=== PATIENT | male | born 1945 | race Caucasian/White ===

== ENCOUNTER 2017-10-21 19:51 | Emergency (ER) | payer MEDICAID, MEDICARE ==
[~2017-10-21] VITALS: Ht 172.7 cm; Wt 72.6 kg
[~2017-10-21 19:51] MED LIST: ALBU18HF2 IH; BUSP30TA2 PO; DOCU100C36 PO; FOLI1TAB16 PO; GABA-534 PO; HYDR-552 PO; SERT100T PO; TRAZ-147 PO
--- NOTE | 2017-10-21 20:00 | NUR ---
BBRA 102; MECHANICAL GLF, HIT THE BACK PF HIS HEAD, ADMITS TO DRINKING ALCOHOL. NAD NOTED, VSS, RESP EVEN AND UNLABORED. PT PUT ON HOSPITAL GOWN AND MONITOR. WAITING FOR MD AT BS.
[2017-10-21] MEDS ORDERED: TDAP [DIPH/PERTUSSIS/TET] 0.5 ML VIAL IM ONE ×2 (20:30→21:44)
--- NOTE | 2017-10-21 21:42 | NUR ---
CALLED [facility] FOR HIGHER LEVEL OF CARE TRANSFER SPOKE WITH RANDY. THEY HAVE NO AVAILABLE BEDS.
--- NOTE | 2017-10-21 21:50 | NUR ---
CALLED [facility] TRANSFER LINE AND SPOKE WITH
[2017-10-21] MEDS ORDERED: LEVETIRACETAM (500MG) 1,000 MG in IV NS 0.9% 100 ML IV SCH (22:00)
[2017-10-21] MEDS ORDERED: LEVETIRACETAM (500MG) 500 MG/5 ML VIAL IV ONE (22:24)
--- NOTE | 2017-10-21 22:41 | NUR ---
PT ACCEPTED AT [facility]. ACCEPTING DR EVIN ANDERSEN. NUMBER FOR REPORT [id number].
[2017-10-21 22:56] LABS: BASOPHILS # (AUTO) 0.1 /CMM (0.0-0.2); BASOPHILS % (AUTO) 1.1 % (0.0-2.0); EOSINOPHILS # (AUTO) 0.4 /CMM (0.0-0.7); EOSINOPHILS % (AUTO) 6.4 % (0.0-6.0); HEMATOCRIT 25 % (39-51); HEMOGLOBIN 7.7 g/dL (13.5-17.5); LYMPHOCYTES # (AUTO) 0.9 /CMM (0.8-4.8); MEAN CORPUSCULAR HEMOGLOBIN 24 PG (26.0-33.0); MEAN CORPUSCULAR HGB CONC 31 g/dl (31.0-36.0); MEAN CORPUSCULAR VOLUME 76 fL (80-96); MONOCYTES # (AUTO) 0.5 /CMM (0.1-1.30); MONOCYTES % (AUTO) 9.4 % (2.0-12.0); NEUTROPHILS # (AUTO) 3.8 /CMM (1.8-8.9); NEUTROPHILS % (AUTO) 67.1 % (43.0-81.0); PLATELET COUNT (AUTO) 122 /CMM (150-450); RDW COEFFICIENT OF VARIATION 18.5 (11.5-15.0); RED BLOOD CELL COUNT(AUTO) 3.24 MIL/uL (4.5-6.0); WHITE BLOOD COUNT (AUTO) 5.7 K/uL (4.3-11.0)
[2017-10-21 23:11] LABS: CALCIUM, SERUM 8.1 mg/dL (8.5-10.1); CARBON DIOXIDE 22 mmol/L (21-32); CHLORIDE 106 mmol/L (98-107); GLUCOSE 88 mg/dL (74-106); SODIUM SERUM 141 mmol/L (136-145); UREA NITROGEN, BLOOD 8 mg/dL (7-18)
[2017-10-21 23:17] LABS: INR 1.1 (0.87-1.13); PROTHROMBIN TIME 11.4 SECS (9.5-12.7)
--- NOTE | 2017-10-21 23:30 | NUR ---
[facility] TRIP#[id number]
--- NOTE | 2017-10-22 00:48 | NUR ---
Patient is resting comfortably in bed with eyes closed. Easily aroused. VSS
[2017-10-22 01:07] VITALS: BP 128/78
--- NOTE | 2017-10-22 01:10 | NUR ---
REPORT GIVEN TO AMIRAH RN
== END 2017-10-22 01:12 | disposition short-term general hospital (02) ==
LOC: ER 19:53
DX: S06.6X9A Traumatic subarachnoid hemorrhage with loss of consciousness of unspecified duration, initial encounter (principal); S50.01XA Contusion of right elbow, initial encounter; F10.129 Alcohol abuse with intoxication, unspecified; J45.909 Unspecified asthma, uncomplicated; W18.30XA Fall on same level, unspecified, initial encounter; Y93.89 Activity, other specified; Y92.89 Other specified places as the place of occurrence of the external cause; Y99.8 Other external cause status
CPT/HCPCS: 36415; 70450; 72125; 80048; 85025; 85730; 90471; 90715; 96365; 99285; A4606; J1953 ×2; J7030 ×2; J7040; Z7610

== ENCOUNTER 2019-07-20 22:16 | Inpatient (IN) | payer MEDICARE, BC ==
[~2019-07-20] VITALS: Ht 177.8 cm; Wt 63.5 kg
[~2019-07-20 22:16] MED LIST changes: +HYDR-4384 PO; -HYDR-552 PO; -TRAZ-147 PO; +TRAZ-214 PO
--- NOTE | 2019-07-20 22:25 | NUR ---
PT BIB EMS C/O R HIP, R THIGH PAIN S/P TRIP AND FALL. PT DENIES KO. PT AOX4. RESP EVEN AND UNLABORED. PT ON MONITOR IN BED 9. WILL CONTINUE TO MONITOR.
[2019-07-20] MEDS ORDERED: HYDROCODONE/APAP 10/325MG 1 EA TABLET PO ONE (23:00)
[2019-07-20] MEDS ORDERED: MORPHINE SULFATE INJ 2 MG/ML DISP.SYRIN IV ONE (23:30)
[2019-07-20] MEDS ORDERED: IV NS 0.9% 500 ML BAG IV ONE (23:30)
[2019-07-20] MEDS ORDERED: ONDANSETRON HCL/PF 4 MG/2 ML VIAL IVP ONE (23:30)
[2019-07-21 00:05] LABS: LYMPHOCYTES # (AUTO) 0.4 /CMM (0.8-4.8); MEAN CORPUSCULAR VOLUME 94 fL (80-96); MONOCYTES # (AUTO) 0.2 /CMM (0.1-1.30); NEUTROPHILS # (AUTO) 1.7 /CMM (1.8-8.9); WHITE BLOOD COUNT (AUTO) 2.4 K/uL (4.3-11.0)
[2019-07-21 00:09] LABS: BASOPHILS % (AUTO) 0.7 % (0.0-2.0); HEMATOCRIT 37 % (39-51); HEMOGLOBIN 12.4 g/dL (13.5-17.5); MEAN CORPUSCULAR HGB CONC 34 g/dl (31.0-36.0); NEUTROPHILS % (AUTO) 71.3 % (43.0-81.0); RED BLOOD CELL COUNT(AUTO) 3.93 MIL/uL (4.5-6.0)
[2019-07-21 00:12] LABS: CALCIUM, SERUM 8.6 mg/dL (8.5-10.1); CREATININE 0.9 mg/dL (0.6-1.3); PLATELET COUNT (AUTO) 44 /CMM (150-450); POTASSIUM 3.8 mmol/L (3.5-5.1)
[2019-07-21] MEDS ORDERED: IV 1/2NS 1000 ML 1,000 ML IV PRN (00:25)
[2019-07-21] MEDS ORDERED: HYDROCODONE/APAP 10/325MG 1 EA TABLET ONE (00:30)
[2019-07-21] MEDS ORDERED: ACETAMINOPHEN 325 MG TABLET PO PRN (00:30)
[2019-07-21] MEDS ORDERED: MAG HYDROX/AL HYDROX/SIMETH 30 ML UDC PO PRN (00:30)
[2019-07-21] MEDS ORDERED: Z GUARD REMEDY 2 OZ OINT TP PRN (00:30)
[2019-07-21] MEDS ORDERED: ONDANSETRON HCL/PF 4 MG/2 ML VIAL IVP PRN (00:30)
[2019-07-21] MEDS ORDERED: MAGNESIUM HYDROXIDE 30 ML UDC PO PRN (00:30)
[2019-07-21] MEDS ORDERED: MORPHINE SULFATE INJ 4 MG/ML DISP.SYRIN ONE (00:31)
[2019-07-21 00:48] LABS: LYMPHOCYTES % (MANUAL) 13 % (16-48); NEUTROPHILS % (MANUAL) 75 (42-76)
[2019-07-21 00:49] LABS: EOSINOPHILS % (MANUAL) 6 % (0-4); MONOCYTES % (MANUAL) 6 % (0-11.0)
--- NOTE | 2019-07-21 01:22 | NUR ---
REPORT GIVEN TO PREM LEYVA FOR JONY
--- NOTE | 2019-07-21 01:40 | NUR ---
RECEIVED PATIENT FROM ER FOR DX RIGHT HIP FRACTURE. AO X 3, ABLE TO MAKE NEEDS KNOWN. NO ACUTE DISTRESS NOTED. MONITORED FOR PAIN. IV SITE PATENT, INTACT; FLUSHED. SKIN ASSESSMENT DONE. BELONGINGS RECORDED. ON LOW BED WITH BILATERAL UPPER SIDE RAILS UP. CALL SHEEHAN WITHIN EASY REACH. WILL CONTINUE TO MONITOR.
[2019-07-21 01:45] VITALS: BP 129/37
[2019-07-21] MEDS: MORPHINE SULFATE INJ 2 MG/ML DISP.SYRIN IV PRN ×2 (02:31→07:39)
[2019-07-21 05:14] VITALS: BP 129/37
--- NOTE | 2019-07-21 06:30 | NUR ---
PATIENT ASLEEP, EASILY AROUSABLE. RESPIRATIONS EVEN. NO SIGNS OF PAIN NOTED. IVF INFUSING ORDERED. NEEDS ATTENDED. RIGHT HIP PRECAUTION MAINTAINED. KEPT CLEAN AND DRY. SAFETY PRECAUTIONS AND COMFORT MEASURES IN PLACE. WILL GIVE REPORT TO DAY SHIFT FOR CONTINUITY OF CARE.
[2019-07-21 06:45] LABS: BASOPHILS % (AUTO) 0.8 % (0.0-2.0); EOSINOPHILS % (AUTO) 4.4 % (0.0-6.0); HEMATOCRIT 40 % (39-51); HEMOGLOBIN 13.3 g/dL (13.5-17.5); LYMPHOCYTES # (AUTO) 0.5 /CMM (0.8-4.8); LYMPHOCYTES % (AUTO) 17.2 % (20.0-44.0); MEAN CORPUSCULAR HGB CONC 33 g/dl (31.0-36.0); MEAN CORPUSCULAR VOLUME 94 fL (80-96); MONOCYTES # (AUTO) 0.3 /CMM (0.1-1.30); MONOCYTES % (AUTO) 11.7 % (2.0-12.0); NEUTROPHILS # (AUTO) 1.8 /CMM (1.8-8.9); NEUTROPHILS % (AUTO) 65.9 % (43.0-81.0); RED BLOOD CELL COUNT(AUTO) 4.28 MIL/uL (4.5-6.0); WHITE BLOOD COUNT (AUTO) 2.7 K/uL (4.3-11.0)
[2019-07-21 06:56] LABS: ALBUMIN 2.6 g/dL (3.4-5.0); BILIRUBIN,TOTAL 0.8 mg/dL (0.2-1.0); CALCIUM, SERUM 8.4 mg/dL (8.5-10.1); CREATININE 0.8 mg/dL (0.6-1.3); POTASSIUM 4.1 mmol/L (3.5-5.1); TOTAL PROTEIN, SERUM 6.9 g/dL (6.4-8.2)
[2019-07-21 06:57] LABS: PLATELET COUNT (AUTO) 48 /CMM (150-450)
--- NOTE | 2019-07-21 07:00 | NUR ---
RECEIVED CALL FROM LAB FOR PLATELET 48. PATIENT WITH NO BLEEDING NOTED. WILL ENDORSE TO DAY SHIFT.
--- NOTE | 2019-07-21 07:30 | NUR ---
m/s sanitation engineer: initial assessment received pt in bed awake, a/ox3. dx: right hip fracture, s/p fall. remains npo, awaiting for ortho to see pt in case of early surgery. pt aware and agreed with plan of care. instructed to call for assistance. will continue to monitor.
--- NOTE | 2019-07-21 07:39 | NUR ---
m/s embalmer assistant: notes pt c/o 05/31 right hip pain, medicated with morphine 1mg ivp by rn. instructed to call for assistance. will monitor.
--- NOTE | 2019-07-21 08:00 | NUR ---
m/s digital associate: md visit seen and examined by dr. costello and informed md that pt home meds needs to be reconciled.
[2019-07-21 08:28] VITALS: BP 132/91
[2019-07-21 09:00] LABS: MAGNESIUM 1.6 mg/dL (1.8-2.4); PHOSPHORUS 4.5 mg/dL (2.5-4.9)
[2019-07-21 09:03] LABS: CHOLESTEROL 119 mg/dL (<200); HDL CHOLESTEROL 69 mg/dL (40-60); LDL 41 mg/dL (0-99); THYROID STIMULATING HORMONE 6.483 uIU/mL (0.358-3.74); TRIGLYCERIDES 40 mg/dL (30-150)
--- NOTE | 2019-07-21 10:00 | NUR ---
m/s rice cleaning machine tender: notes pt resting comfortable in bed. pt refused to have his buttocks/bottom/back assessed due to right hip pain. instructed to call for assistance. will continue to monitor.
[2019-07-21 10:11] LABS: BAND % (MANUAL) 2 % (0.0-5.0); EOSINOPHILS % (MANUAL) 4 % (0-4); LYMPHOCYTES % (MANUAL) 18 % (16-48); MONOCYTES % (MANUAL) 9 % (0-11.0); NEUTROPHILS % (MANUAL) 67 (42-76)
--- NOTE | 2019-07-21 11:00 | NUR ---
m/s appraisal technician: notes still awaiting for orthopedic to see pt. lunch ordered. made aware.
--- NOTE | 2019-07-21 11:30 | NUR ---
m/s chief radiologic technologist: notes dr. costello here and informed md that med hasn't been reconciled with order to continue home medications. orders carried out.
--- NOTE | 2019-07-21 13:20 | NUR ---
m/s device engineer: ortho consult received order from yenni gasca) to Obtain consent for <right hip hemiarthroplasty. order acknowledged. pt verbalized understanding.
[2019-07-21] MEDS: ALBUTEROL FS 2.5 MG/0.5 ML VIAL.NEB NEB SCH ×2 (14:05→19:54)
--- NOTE | 2019-07-21 14:30 | NUR ---
m/s pressurised container filler: notes consents obtained from pt for right hip hemiarthroplasty, anesthesia, and blood products.
--- NOTE | 2019-07-21 15:29 | NUR ---
m/s call or contact centre manager: aerial installer consult seen and examined by dr. georges with orders. orders acknowledged. will keep pt npo for dinner and pt made aware.
--- NOTE | 2019-07-21 15:37 | NUR ---
m/s personalized living manager: notes called rad dept, spoke to azeb and received the routine order for abdomen us and informed him that it's been changed to stat.
[2019-07-21 16:11] VITALS: BP 126/65
--- NOTE | 2019-07-21 16:30 | NUR ---
m/s patient coordinator: notes abdomen us completed. dinner ordered. instructed to call for assistance. will monitor.
[2019-07-21] MEDS: busPIRone 5 MG TABLET PO SCH (16:42)
--- NOTE | 2019-07-21 16:50 | NUR ---
m/s mattress filler: notes dr. costello notified re: magnesium 1.6 with order to give mag-oxide 800mg po now and tonight. orders read back and acknowledged.
[2019-07-21] MEDS ORDERED: MAGNESIUM OXIDE 400 MG TABLET PO ONE (17:00)
[2019-07-21] MEDS ORDERED: DOCUSATE SODIUM 100 MG CAPSULE PO SCH (17:00)
[2019-07-21] MEDS: DOCUSATE SODIUM 250 MG CAPSULE PO SCH (17:04)
--- NOTE | 2019-07-21 17:10 | NUR ---
m/s plastic mixer: notes dinner served, but pt is not hungry and wants to leave tray at bedside. needs attended. instructed to call for assistance. will continue to monitor.
--- NOTE | 2019-07-21 18:25 | NUR ---
m/s culinary specialist: notes pt sounds asleep. no distress noted. needs attended. call light within reach. will continue to monitor.
--- NOTE | 2019-07-21 19:13 | NUR ---
m/s christian science practitioner: notes report given to debbie (rn) for continuity of care.
--- NOTE | 2019-07-21 19:30 | NUR ---
MS/RN NOTES RECEIVED PT. LYING IN BED RESTING. PT. IS EASILY AROUSABLE TO NAME. AWAKE, ALERT AND ORIENTED X3. BREATHING EVEN AND UNLABORED ON 2LPM O2 VIA NC. NO SOB, RESPIRATORY DISTRESS OR COMPLAINTS OF PAIN NOTED AT THIS TIME. PT. WITH RIGHT FEMUR FRACTURE. PT. REFUSING TO MOVE OR BE REPOSITIONED. PT. WITH RIGHT WRIST 20 GAUGE IV SALINE LOCK PRESENT, PATENT AND INTACT. PT. IS BEDREST, NON-WEIGHT BEARING ON RIGHT LOWER EXTREMITY. PT. REMAINS NPO EXCEPT MEDS AT THIS TIME. PT. WILL BE NPO AFTER MIDNIGHT PENDING SURGERY TOMORROW. PER DAYSHIFT NURSE CONSENT SIGNED AND PLACED IN PT. CHART. BED LOCKED AND IN LOWEST POSITION, SIDE RAILS UP X3, BED ALARM ON, CALL LIGHT WITHIN REACH, WILL CONTINUE TO MONITOR.
[2019-07-21 20:50] VITALS: BP 128/76
[2019-07-21] MEDS: MAGNESIUM OXIDE 400 MG TABLET PO SCH (21:09)
[2019-07-21] MEDS: TRAZODONE 50 MG TABLET PO SCH (21:09)
[2019-07-22] VITALS (11 sets, daily range): BP systolic 108–122; BP diastolic 64–85
--- NOTE | 2019-07-22 05:44 | NUR ---
MS/RN NOTES CALLED EPIC GAS SYSTEMS WORKER AND NOTIFIED ASIA DOMINGUEZ PT. IS GOING FOR SURGERY TODAY AND IT IS NOTED IN SEVERAL MD NOTES THAT PATIENT NEEDS PLATELET TRANSFUSION PRIOR TO SURGERY, HOWEVER THERE IS NO STANDING ORDER, OR AN AMOUNT OF PLATELETS TO BE TRANSFUSED. PT. CURRENT PLATELET LEVEL IS 48. PER DR. LUO NOTE TRANSFUSE TO KEEP PLATELETS GREATER THAN 50. PER ASIA DOMINGUEZ NEW ORDER: 1 UNIT PLATELETS TO BE TRANSFUSED STAT. WILL CARRY OUT ORDER. CALLED LAB AND NOTIFIED THEM OF STAT ORDER FOR 1 UNIT PLATELETS, THEY STATED THEY ARE WORKING ON IT. WILL CONTINUE TO MONITOR.
--- NOTE | 2019-07-22 06:26 | NUR ---
MS/RN NOTES PT. IS LYING IN BED RESTING. BREATHING EVEN AND UNLABORED ON 2LPM O2 VIA NC. NO SOB, RESPIRATORY DISTRESS OR COMPLAINTS OF PAIN NOTED AT THIS TIME. PT. WITH RIGHT WRIST 20 GAUGE IV SALINE LOCK PRESENT, PATENT AND INTACT. PT. REMAINS NPO SINCE MIDNIGHT PENDING RIGHT HIP HEMIARTHROPLASTY TODAY. PT. CONSENT SIGNED AND PLACED IN PT. CHART. PT. IS PENDING TRANSFUSION OF 1 UNIT PLATELETS, STILL AWAITING FOR PLATELETS TO BE READY. WILL ENDORSE TO DAYSHIFT NURSE TO FOLLOW UP. BED LOCKED AND IN LOWEST POSITION, SIDE RAILS UP X3, BED ALARM ON, CALL LIGHT WITHIN REACH, WILL ENDORSE TO DAYSHIFT NURSE FOR CONTINUITY OF CARE.
[2019-07-22 06:45] LABS: BASOPHILS % (AUTO) 0.4 % (0.0-2.0); EOSINOPHILS % (AUTO) 2.6 % (0.0-6.0); HEMATOCRIT 41 % (39-51); HEMOGLOBIN 13.9 g/dL (13.5-17.5); LYMPHOCYTES # (AUTO) 0.5 /CMM (0.8-4.8); MEAN CORPUSCULAR HGB CONC 34 g/dl (31.0-36.0); MEAN CORPUSCULAR VOLUME 93 fL (80-96); MONOCYTES # (AUTO) 0.4 /CMM (0.1-1.30); MONOCYTES % (AUTO) 9.6 % (2.0-12.0); NEUTROPHILS # (AUTO) 2.8 /CMM (1.8-8.9); NEUTROPHILS % (AUTO) 73.4 % (43.0-81.0); PLATELET COUNT (AUTO) 55 /CMM (150-450); RED BLOOD CELL COUNT(AUTO) 4.43 MIL/uL (4.5-6.0); WHITE BLOOD COUNT (AUTO) 3.8 K/uL (4.3-11.0)
[2019-07-22 07:06] LABS: ALBUMIN 2.7 g/dL (3.4-5.0); BILIRUBIN,TOTAL 1.4 mg/dL (0.2-1.0); CALCIUM, SERUM 8.4 mg/dL (8.5-10.1); CREATININE 0.8 mg/dL (0.6-1.3); MAGNESIUM 1.7 mg/dL (1.8-2.4); PHOSPHORUS 4.2 mg/dL (2.5-4.9); TOTAL PROTEIN, SERUM 7.1 g/dL (6.4-8.2)
[2019-07-22 07:15] LABS: THYROID STIMULATING HORMONE 2.553 uIU/mL (0.358-3.74)
--- NOTE | 2019-07-22 07:30 | NUR ---
m/s oracle r12 developer: notes received pt in bed asleep, but easily arousable. pt scheduled for right hip hemiarthroplasty at 1100. kept npo since midnight. call light within reach. will continue to monitor.
[2019-07-22] MEDS: Magnesium 1GM/D5W 100ML PREMIX 100 ML IV SCH ×2 (08:10→09:14)
--- NOTE | 2019-07-22 08:17 | NUR ---
m/s communication electronic technician: notes f/u made to lab re: 1 unit of stat platelet, spoke to ivon and informed me that it was ordered stat, but it's not here yet.
[2019-07-22] MEDS: DOCUSATE SODIUM 250 MG CAPSULE PO SCH ×2 (08:29→17:00)
[2019-07-22] MEDS: FOLIC ACID 1 MG TABLET PO SCH (08:29)
[2019-07-22] MEDS: SERTRALINE HCL 50 MG TABLET PO SCH (08:29)
[2019-07-22] MEDS: busPIRone 5 MG TABLET PO SCH ×3 (08:29→17:00)
--- NOTE | 2019-07-22 08:30 | NUR ---
m/s coastal/harbor defense officer: notes am meds held due to surgery being close for administration, pt made aware. pt remains npo. will continue to monitor.
[2019-07-22] MEDS: ALBUTEROL FS 2.5 MG/0.5 ML VIAL.NEB NEB SCH ×2 (08:33→20:02)
[2019-07-22 08:49] LABS: ABG BASE EXCESS 2.8 mmol/L; ABG OXYGEN SATURATION 95.5 % (92.0-98.5); ABG PCO2 42.6 mmHg (35.0-45.0); ABG PH 7.428 (7.350-7.450); ABG PO2 78.6 mmHg (75.0-100.0); AaDO2 70.8 mmHg; COHb 1.9 % (0.5-1.5); MetHb 0.4 % (0.0-1.5); O2Hb 93.3 % (94.0-97.0); SITE, ABG Left Radial; VENT MODE, BG 2L NC
[2019-07-22] MEDS ORDERED: FOLIC ACID 1 MG TABLET PO SCH (09:00)
--- NOTE | 2019-07-22 09:39 | NUR ---
m/s entry level finance: notes f/u made to ivon (can labeler) and informed me that platelet still not available and will f/u with [facility].
[2019-07-22] MEDS ORDERED: HYDROMORPHONE INJ 2 MG/ML DISP.SYRIN ONE (10:27)
[2019-07-22] MEDS ORDERED: ROCURONIUM BROMIDE 50 MG/5 ML ONE (10:28)
[2019-07-22] MEDS ORDERED: MIDAZOLAM HCL 2 MG/2ML VIAL ONE (10:28)
--- NOTE | 2019-07-22 10:30 | NUR ---
m/s electric repair supervisor: notes started 1 unit of platelet at this time. vss. will continue to monitor. o.r. called and made aware.
[2019-07-22] MEDS ORDERED: SUCCINYLCHOLINE CHLORIDE 20 MG/ML VIAL ONE (10:44)
--- NOTE | 2019-07-22 10:45 | NUR ---
m/s voice instructor: notes no a/r noted after 15 minutes of platelet. vss, afebrile. will continue to monitor.
--- NOTE | 2019-07-22 10:55 | NUR ---
m/s software applications specialist: notes o.r. team here to tile picker the pt. 1 unit of platelet completed without a/r noted. vss, afebrile. pt to o.r. via bed. will continue to monitor.
[2019-07-22] MEDS ORDERED: BACITRACIN 50000 UNITS/VIAL ONE (11:38)
[2019-07-22] MEDS ORDERED: TRANEXAMIC ACID 1,000 MG in SODIUM CHLORIDE IRRIG SOLUTION 85 ML IR ONE (12:00)
[2019-07-22 13:56] LABS: BASOPHILS % (AUTO) 0.4 % (0.0-2.0); EOSINOPHILS % (AUTO) 2.7 % (0.0-6.0); HEMATOCRIT 42 % (39-51); LYMPHOCYTES # (AUTO) 0.7 /CMM (0.8-4.8); LYMPHOCYTES % (AUTO) 9.2 % (20.0-44.0); MEAN CORPUSCULAR HGB CONC 33 g/dl (31.0-36.0); MEAN CORPUSCULAR VOLUME 94 fL (80-96); MONOCYTES # (AUTO) 0.7 /CMM (0.1-1.30); MONOCYTES % (AUTO) 9.5 % (2.0-12.0); NEUTROPHILS # (AUTO) 5.8 /CMM (1.8-8.9); NEUTROPHILS % (AUTO) 78.2 % (43.0-81.0); PLATELET COUNT (AUTO) 78 /CMM (150-450); WHITE BLOOD COUNT (AUTO) 7.4 K/uL (4.3-11.0)
[2019-07-22] MEDS ORDERED: HYDROCODONE/APAP 5/325MG 1 EACH TABLET PO PRN (14:00)
--- NOTE | 2019-07-22 14:03 | NUR ---
m/s wheel molder: notes received pt from recovery room with dx: s/p right hip hemiarthroplasty. abduction pillow in place with right hip dressing intact. scd to ble in place. f/c draining to gravity that was placed by o.r. team. vss. late lunch ordered. instructed to call for assistance. will continue to monitor.
[2019-07-22 14:11] LABS: CALCIUM, SERUM 8.4 mg/dL (8.5-10.1); CREATININE 0.9 mg/dL (0.6-1.3); POTASSIUM 4.2 mmol/L (3.5-5.1)
--- NOTE | 2019-07-22 14:35 | NUR ---
m/s nuclear logging engineer: notes pt appears to be confused, attempting to get out of bed. repositioned and reality orientation provided prn. pt appears to be drowsy. bed alarm on. sr x 3 up. will continue to monitor.
--- NOTE | 2019-07-22 15:45 | NUR ---
m/s training and development specialist: notes pt sounds asleep, appears to be sedated. vss. no distress noted. late lunch held. will continue to monitor.
--- NOTE | 2019-07-22 17:05 | NUR ---
m/s metal precision machine assembler: notes pt too sedated. vss. no acute distress. meds held. will continue to monitor.
[2019-07-22] MEDS: CEFAZOLIN 2 GM in IV D5W 50 ML IV SCH (17:48)
--- NOTE | 2019-07-22 18:38 | NUR ---
m/s veneer sorter: notes in bed sleeping at interval. no distress noted. vss. needs attended. will continue to monitor.
--- NOTE | 2019-07-22 19:15 | NUR ---
m/s gear milling machine set up operator: notes report given to debbie (rn) for continuity of care.
--- NOTE | 2019-07-22 19:20 | NUR ---
MS/RN NOTES RECEIVED PT. LYING IN BED RESTING. PT. IS EASILY AROUSABLE TO NAME. AWAKE, ALERT AND ORIENTED X3. BREATHING EVEN AND UNLABORED ON 2LPM O2 VIA NC. NO SOB, RESPIRATORY DISTRESS OR COMPLAINTS OF PAIN NOTED AT THIS TIME. PT. IS POST OP RIGHT HIP HEMIARTHROPLASTY TODAY, PT. WITH POST OP SURGICAL DRESSING PRESENT, CLEAN, DRY AND INTACT. NO BLEEDING OR DRAINAGE NOTED AT THIS TIME. PT. WITH ABDUCTION PILLOW PRESENT AND IN PLACE. PT. WITH RIGHT WRIST 20 GAUGE IV SALINE LOCK PRESENT, CLEAN, DRY AND INTACT. PT. WITH OSORIO CATHETER PRESENT, PATENT AND IN PLACE DRAINING CLEAR YELLOW URINE. BED LOCKED AND IN LOWEST POSITION, SIDE RAILS UP X3, BED ALARM ON, CALL LIGHT WITHIN REACH, WILL CONTINUE TO MONITOR.
[2019-07-22] MEDS: TRAZODONE 50 MG TABLET PO SCH (22:35)
[2019-07-22] MEDS: MAGNESIUM OXIDE 400 MG TABLET PO SCH (22:35)
[2019-07-23] MEDS: CEFAZOLIN 2 GM in IV D5W 50 ML IV SCH (02:17)
[2019-07-23] MEDS: MORPHINE SULFATE INJ 2 MG/ML DISP.SYRIN IV PRN ×4 (03:47→21:42)
--- NOTE | 2019-07-23 06:23 | NUR ---
MS/RN NOTES PT. IS LYING IN BED RESTING. BREATHING EVEN AND UNLABORED ON 2LPM O2 VIA NC. NO SOB, RESPIRATORY DISTRESS OR COMPLAINTS OF PAIN NOTED AT THIS TIME. PT. WITH POST DRESSING PRESENT, CLEAN, DRY AND INTACT. NO BLEEDING OR DRAINAGE NOTED AT THIS TIME. PT. WITH ABDUCTION PILLOW PRESENT AND IN PLACE. PT. WITH RIGHT WRIST 20 GAUGE IV SALINE LOCK PRESENT, CLEAN, DRY AND INTACT. PT. WITH OSORIO CATHETER PRESENT, PATENT AND IN PLACE DRAINING CLEAR YELLOW URINE. ALL PT. NEEDS MET. BED LOCKED AND IN LOWEST POSITION, SIDE RAILS UP X3, BED ALARM ON, CALL LIGHT WITHIN REACH, WILL ENDORSE TO DAYSHIFT NURSE FOR CONTINUITY OF CARE.
--- NOTE | 2019-07-23 07:45 | NUR ---
MS RN OPENING NOTES RECEIVED PATIENT IN BED ALERT AND AWAKE ORIENTED X3. NO SOB OBSERVED. PATIENT STATED PAIN IS MANAGEABLE AT THIS TIME. ABDUCTOR PILLOW IN PLACE. RIGHT WRIST # 20SL INTACT AND PATENT. BED LOWEST POSITION, LOCKED. CALL LIGHT WITHIN REACH.
[2019-07-23 08:00] VITALS: BP 124/75
--- NOTE | 2019-07-23 08:00 | NUR ---
MS RN NOTES PER ENDORSEMENT, PATIENT HAS $670 [place] IN [employer]. SPOKE TO PATIENT ABOUT PUTTING MONEY IN SAFE BUT PATIENT STRONGLY REFUSED.
[2019-07-23] MEDS: ALBUTEROL FS 2.5 MG/0.5 ML VIAL.NEB NEB SCH ×2 (08:24→19:56)
[2019-07-23] MEDS: ENOXAPARIN SODIUM 40 MG/0.4 ML DISP.SYRIN SQ SCH (08:31)
[2019-07-23] MEDS: SERTRALINE HCL 50 MG TABLET PO SCH (08:32)
[2019-07-23] MEDS: DOCUSATE SODIUM 250 MG CAPSULE PO SCH ×2 (08:32→16:11)
[2019-07-23] MEDS: busPIRone 5 MG TABLET PO SCH ×3 (08:32→16:11)
[2019-07-23] MEDS: FOLIC ACID 1 MG TABLET PO SCH (08:32)
[2019-07-23 09:07] LABS: IMMUNOGLOBULIN A, SERUM 308 mg/dL (61-437); IMMUNOGLOBULIN G, SERUM 2141 mg/dL (700-1600); IMMUNOGLOBULIN M, SERUM 344 mg/dL (15-143)
[2019-07-23 12:07] LABS: *SPE A/G RATIO 0.8 (0.7-1.7); *SPE ALPHA-1-GLOBULIN 0.3 g/dL (0.0-0.4); *SPE ALPHA-2-GLOBULIN 0.6 g/dL (0.4-1.0); *SPE BETA GLOBULIN 0.9 g/dL (0.7-1.3); *SPE GLOBULIN, TOTAL 3.9 g/dL (2.2-3.9); *SPE M-SPIKE Not Observed g/dL (Not Observed); *SPEGAMMA GLOBULIN 2.1 g/dL (0.4-1.8)
[2019-07-23] MEDS: HYDROCODONE/APAP 5/325MG 1 EACH TABLET PO PRN (14:08)
--- NOTE | 2019-07-23 15:00 | NUR ---
MS RN NOTES SEEN BY MARK CAICEDO. DRESSING CHANGE WILL BE DONE GUILLAUME.
[2019-07-23 16:00] VITALS: BP 110/68
[2019-07-23 18:12] LABS: APPEARANCE,URINE Clear (CLEAR); BILIRUBIN,URINE SMALL (NEGATIVE); BLOOD, URINE Moderate Ery/uL (NEGATIVE); COLOR,URINE Yellow (YELLOW); KETONES,URINE Negative (NEGATIVE); LEUKOCYTE ESTERASE ,URINE Trace (NEGATIVE); NITRITE, URINE Negative (NEGATIVE); PROTEIN,URINE Negative (NEGATIVE); UGLUCOSE Negative (NEGATIVE)
--- NOTE | 2019-07-23 18:46 | NUR ---
MS RN CLOSING NOTES ALERT AND AWAKE ORIENTED X3. NO SOB OBSERVED. ABDUCTOR PILLOW IN PLACE. RIGHT FOREARM SL #22 INTACT AND PATENT. S/P OSORIO CATHETER REMOVAL WITHOUT S/S OF COMPLICATIONS OBSERVED. VOIDING FREELY VIA URINAL. ABLE TO VERBALIZE NEEDS BED LOWEST POSITION, LOCKED. CALL LIGHT WITHIN REACH. IN NO APPARENT DISTRESS.
--- NOTE | 2019-07-23 19:05 | NUR ---
MS RN NOTES RECEIVED PT IN BED AWAKE AND ABLE TO MAKE NEEDS KNOWN. PT A/O X3. RESPIRATIONS EVEN AND UNLABORED WITH NO S/S OF ACUTE DISTRESS OR SOB NOTED. PT WITH ABDUCTOR PILLOW IN PLACE. NO COMPLAINTS OF PAIN AT THIS TIME. PT WITH RFOREARM #22G PATENT AND INTACT AND SL. SAFETY MEASURES IN PLACE WITH BED IN LOWEST LOCKED POSITION WITH SIDE RAILS UP X2. CALL LIGHT WITHIN REACH. WILL CONTINUE TO MONITOR.
[2019-07-23 19:11] LABS: BACTERIA,URINE Few /HPF (None Seen); RBC,URINE 21-50 /HPF (0-2); SQUAMOUS EPITHELIAL CELL,UR Few /HPF (None Seen)
[2019-07-23 20:00] VITALS: BP 125/73
[2019-07-23] MEDS: TRAZODONE 50 MG TABLET PO SCH (21:05)
[2019-07-23] MEDS: MAGNESIUM OXIDE 400 MG TABLET PO SCH (21:05)
--- NOTE | 2019-07-24 07:53 | NUR ---
MS RN NOTES PT IN BED AWAKE AND ABLE TO MAKE NEEDS KNOWN. PT A/O X3. RESPIRATIONS EVEN AND UNLABORED WITH NO S/S OF ACUTE DISTRESS OR SOB NOTED. PT WITH ABDUCTOR PILLOW IN PLACE. NO COMPLAINTS OF PAIN AT THIS TIME. PT WITH RFOREARM #22G PATENT AND INTACT AND SL. SAFETY MEASURES IN PLACE WITH BED IN LOWEST LOCKED POSITION WITH SIDE RAILS UP X2. CALL LIGHT WITHIN REACH. WILL ENDORSE TO ONCOMING NURSE FOR JONY.
--- NOTE | 2019-07-24 07:56 | NUR ---
MS RN OPENING NOTES RECEIVED PATIENT IN BED ALERT AND AWAKE ORIENTED X3. NO SOB. HOB ELEVATED. ON 02 @ 2L/MIN VIA NC FELICIA WELL. DENIES ANY C/O PAIN NOR DISCOMFORT AT THIS TIME. RESTING COMFORTABLY IN BED. RFA # 22 SL INTACT AND PATENT WITHOUT S/S OF COMPLICATIONS. BED IN LOWEST POSITION, LOCKED. CALL LIGHT WITHIN REACH. ABLE TO VERBALIZE NEEDS.
[2019-07-24 08:00] VITALS: BP 116/69
[2019-07-24] MEDS: ALBUTEROL FS 2.5 MG/0.5 ML VIAL.NEB NEB SCH ×2 (08:25→20:26)
[2019-07-24] MEDS: FOLIC ACID 1 MG TABLET PO SCH (08:59)
[2019-07-24] MEDS: DOCUSATE SODIUM 250 MG CAPSULE PO SCH ×2 (08:59→16:14)
[2019-07-24] MEDS: SERTRALINE HCL 50 MG TABLET PO SCH (09:00)
[2019-07-24] MEDS: busPIRone 5 MG TABLET PO SCH ×3 (09:00→16:14)
[2019-07-24] MEDS: ENOXAPARIN SODIUM 40 MG/0.4 ML DISP.SYRIN SQ SCH (09:02)
[2019-07-24] MEDS: MORPHINE SULFATE INJ 2 MG/ML DISP.SYRIN IV PRN (14:00)
--- NOTE | 2019-07-24 15:00 | NUR ---
MS RN NOTES RECEIVED A CALL FROM CONNIE, PATIENT'S [place] ([facility]) CONTACT # [phone]. PER CONNIE SHE HAD SPOKEN TO MANAGER PHARMACY HERE BUT UNABLE TO RECAL NAME AND THAT IF PATIENT IS GOING TO BE DISCHARGE TO A SNF IF PATIENT CAN BE DISCHARGE TO [facility] SN[facility] DUE TO FACILITY IS CLOSE TO THE [facility] SO HIS FRIENDS CAN VISIT HIM.
[2019-07-24 16:00] VITALS: BP 120/74
--- NOTE | 2019-07-24 16:15 | NUR ---
MS RN NOTES HELD COLACE, PATIENT WITH EPISODE OF 4 BM LARGE, SOFT AND FORMED WITH A MIXTURE OF LIQUID STOOL DURING THE SHIFT.
--- NOTE | 2019-07-24 18:59 | NUR ---
MS RN CLOSING NOTES PATIENT RESTING COMFORTABLY IN BED. NO SOB. HOB ELEVATED. ON 02 @ 2L/MIN VIA NC FELICIA WELL. DENIES ANY C/O PAIN NOR DISCOMFORT AT THIS TIME. RFA # 22 SL INTACT AND PATENT WITHOUT S/S OF COMPLICATIONS. BED IN LOWEST POSITION, LOCKED. CALL LIGHT WITHIN REACH. IN NO APPARENT DISTRESS.
--- NOTE | 2019-07-24 19:10 | NUR ---
MS RN OPENING NOTES NOTES Received patient A/O x3, awake, on semi-Summers's position on bed, no SOB/respiratory distress noted. Patient denies any discomfort at this time. Kept on bed clean, dry and comfortable. Call light within easy reach. On fall precautions. Will continue to monitor accordingly.
[2019-07-24 20:00] VITALS: BP 124/78
[2019-07-24 21:09] VITALS: BP 124/78
[2019-07-24] MEDS: MAGNESIUM OXIDE 400 MG TABLET PO SCH (22:01)
[2019-07-24] MEDS: TRAZODONE 50 MG TABLET PO SCH (22:01)
--- NOTE | 2019-07-25 06:29 | NUR ---
MS RN CLOSING NOTES Patient asleep, easily awaken. On O2 inhalation via NC, no SOB/respiratory distress noted. All due meds given as ordered. All nursing needs attended. No new complaints made, no new unusualities noted. Kept on bed clean, dry and comfortable. Call light within easy reach. Endorsed to the next shift.
--- NOTE | 2019-07-25 07:51 | NUR ---
RN MS OPENING NOTES Patient received on nasal cannula, no sob noted, patient denies pain at this time. Patient remains a/o x3 and is comfortably lying down in his bed. RFA #22 SL, remains patent. Bed at the lowest setting, call light within reach, side rail sup x2.
[2019-07-25 08:00] VITALS: BP 118/74
[2019-07-25] MEDS: ALBUTEROL FS 2.5 MG/0.5 ML VIAL.NEB NEB SCH ×2 (08:01→19:46)
[2019-07-25] MEDS: FOLIC ACID 1 MG TABLET PO SCH (09:05)
[2019-07-25] MEDS: DOCUSATE SODIUM 250 MG CAPSULE PO SCH ×2 (09:05→16:24)
[2019-07-25] MEDS: busPIRone 5 MG TABLET PO SCH ×3 (09:05→16:24)
[2019-07-25] MEDS: SERTRALINE HCL 50 MG TABLET PO SCH (09:06)
[2019-07-25] MEDS: ENOXAPARIN SODIUM 40 MG/0.4 ML DISP.SYRIN SQ SCH (09:12)
[2019-07-25 12:37] LABS: BASOPHILS % (AUTO) 0.4 % (0.0-2.0); EOSINOPHILS % (AUTO) 1.4 % (0.0-6.0); HEMATOCRIT 34 % (39-51); HEMOGLOBIN 11.6 g/dL (13.5-17.5); LYMPHOCYTES # (AUTO) 0.4 /CMM (0.8-4.8); LYMPHOCYTES % (AUTO) 7.5 % (20.0-44.0); MEAN CORPUSCULAR HGB CONC 34 g/dl (31.0-36.0); MEAN CORPUSCULAR VOLUME 91 fL (80-96); MONOCYTES # (AUTO) 0.6 /CMM (0.1-1.30); MONOCYTES % (AUTO) 11.7 % (2.0-12.0); NEUTROPHILS # (AUTO) 3.9 /CMM (1.8-8.9); PLATELET COUNT (AUTO) 72 /CMM (150-450); RED BLOOD CELL COUNT(AUTO) 3.71 MIL/uL (4.5-6.0)
[2019-07-25 13:05] LABS: EOSINOPHILS % (MANUAL) 3 % (0-4); LYMPHOCYTES % (MANUAL) 14 % (16-48); MONOCYTES % (MANUAL) 8 % (0-11.0); NEUTROPHILS % (MANUAL) 75 (42-76)
[2019-07-25] MEDS: HYDROCODONE/APAP 5/325MG 1 EACH TABLET PO PRN (13:44)
[2019-07-25 14:38] LABS: CARBON DIOXIDE 28 mmol/L (21-32); CHLORIDE 101 mmol/L (98-107); CREATININE 0.8 mg/dL (0.6-1.3); GLUCOSE 131 mg/dL (74-106); MAGNESIUM 1.8 mg/dL (1.8-2.4); PHOSPHORUS 2.8 mg/dL (2.5-4.9); POTASSIUM 3.8 mmol/L (3.5-5.1); SODIUM SERUM 136 mmol/L (136-145); UREA NITROGEN, BLOOD 17 mg/dL (7-18)
[2019-07-25 16:00] VITALS: BP 113/70
[2019-07-25] MEDS: ENSURE ENLIVE CHOC 237 ML CAN PO SCH (17:00)
--- NOTE | 2019-07-25 18:38 | NUR ---
RN MS CLOSING NOTES Patient remains on 2L nasal cannula, no sob noted, patient remains a/o x3. Patient's vital signs remain stable. Patient took all his medications. R FA #22 remains intact at this time. Bed at the lowest setting, call light within reach, side rails up x2. Will give report to NOC RN for JONY bedside.
--- NOTE | 2019-07-25 19:15 | NUR ---
RN MS PM OPENING NOTE BEDSIDE REPORT RECIEVED FROM ISABELL RN. Patient on 2L nasal cannula, NO sob noted, patient a/o x3. Patient's. R FA #22 INTACT HEPLOCKED WITH NO VISIBLE SIGNS OF COMPLICATIONS. Bed DOWN AND LOCKED, call light within reach, side rails up x2. WILL CONT TO MONITOR.
[2019-07-25 20:00] VITALS: BP 120/75
[2019-07-25] MEDS: TRAZODONE 50 MG TABLET PO SCH (22:41)
[2019-07-25] MEDS: MAGNESIUM OXIDE 400 MG TABLET PO SCH (22:41)
--- NOTE | 2019-07-25 22:45 | NUR ---
patient requested and given tyelonol for lira rated 3/10.
[2019-07-26] MEDS: ZOLPIDEM TARTRATE 5 MG TABLET PO PRN ×2 (00:33→21:09)
--- NOTE | 2019-07-26 00:34 | NUR ---
ambien prn patient requesting ambien for sleeplessness. jenn administered prn as ordered.
[2019-07-26] MEDS: ALBUTEROL FS 2.5 MG/0.5 ML VIAL.NEB NEB SCH ×3 (07:15→20:09)
--- NOTE | 2019-07-26 07:25 | NUR ---
INITIAL BEDSIDE REPORT RECEIVED FROM ISABELL RN. Patient on 2L nasal cannula, NO sob noted, patient a/o x3. Patient's. R FA #22 INTACT HEP-LOCKED WITH NO VISIBLE SIGNS OF COMPLICATIONS. Bed DOWN AND LOCKED, call light within reach, side rails up x2. WILL CONTINUE TO MONITOR.
[2019-07-26 08:00] VITALS: BP 141/73
[2019-07-26] MEDS: ENSURE ENLIVE CHOC 237 ML CAN PO SCH ×3 (08:16→16:34)
[2019-07-26] MEDS: FOLIC ACID 1 MG TABLET PO SCH (08:52)
[2019-07-26] MEDS: busPIRone 5 MG TABLET PO SCH ×3 (08:52→16:33)
[2019-07-26] MEDS: SERTRALINE HCL 50 MG TABLET PO SCH (08:52)
[2019-07-26] MEDS: DOCUSATE SODIUM 250 MG CAPSULE PO SCH ×2 (08:52→16:33)
[2019-07-26] MEDS: ENOXAPARIN SODIUM 40 MG/0.4 ML DISP.SYRIN SQ SCH (08:55)
[2019-07-26] MEDS ORDERED: ENOX40DI SQ (12:39)
[2019-07-26] MEDS ORDERED: MAGN400T26 PO (12:39)
[2019-07-26] MEDS ORDERED: HYDR-3972 PO (12:39)
[2019-07-26 16:00] VITALS: BP 111/73
--- NOTE | 2019-07-26 17:28 | NUR ---
CLOSING Patient remains on 2L nasal cannula, no sob noted, patient remains a/o x3. Patient's vital signs remain stable. Patient took all his medications. R FA #22 remains intact at this time. Bed at the lowest setting, call light within reach, side rails up x2. Will give report to PM RN for continuity of care bedside.
--- NOTE | 2019-07-26 19:10 | NUR ---
RN PM OPENING NOTE BEDSIDE REPORT RECIEVED FROM AGUSTINA AMARO. PT on 2L nasal cannula, no sob noted, patient a/o x3. R FA #22 HEPLOCK intact NO S/S OF COMPLICATIONS. Bed at the lowest setting, call light within reach, side rails up x2. VERBALIZED UNDERSTANDING TO CALL FOR ASSISTANCE NEEDED BED ALARM ACTIVE.
[2019-07-26 20:00] VITALS: BP 120/69
[2019-07-26] MEDS: TRAZODONE 50 MG TABLET PO SCH (21:03)
[2019-07-26] MEDS: MAGNESIUM OXIDE 400 MG TABLET PO SCH (21:03)
[2019-07-27] MEDS: HYDROCODONE/APAP 5/325MG 1 EACH TABLET PO PRN ×4 (02:42→23:17)
--- NOTE | 2019-07-27 06:44 | NUR ---
RN PM CLOSING NOTE PT SEEN DENIES PAIN. PATIENT HAD 3 BM LAST NIGHT AND THEY WERE LOOSE. PT on 2L nasal cannula, no sob noted, patient a/o x3. R FA #22 HEPLOCK intact NO S/S OF COMPLICATIONS. Bed at the lowest setting, call light within reach, side rails up x2. VERBALIZED UNDERSTANDING TO CALL FOR ASSISTANCE NEEDED BED ALARM ACTIVE. WILL ENDORSE TO DAYSHIFT FOR CONTINUITY OF CARE.
[2019-07-27] MEDS: ALBUTEROL FS 2.5 MG/0.5 ML VIAL.NEB NEB SCH ×2 (07:26→19:44)
--- NOTE | 2019-07-27 07:50 | NUR ---
M/S RN NOTES PATIENT RESTING, LYING IN BED. PATIENT ALERT AND ORIENTED X3. PATIENT IN NO RESPIRATORY DISTRESS NOTED, NO C/O PAIN AT THIS TIME. SKIN WARM TO TOUCH. IV ACCESS SITE INTACT AND PATENT. PATIENT'S NEEDS ATTENDED. BED ON LOWEST LOCKED POSITION, CALL LIGHT WITHIN REACH. WILL CONTINUE TO MONITOR.
[2019-07-27 08:00] VITALS: BP 110/69
[2019-07-27] MEDS: ENSURE ENLIVE CHOC 237 ML CAN PO SCH ×3 (08:22→17:21)
[2019-07-27] MEDS: FOLIC ACID 1 MG TABLET PO SCH (09:19)
[2019-07-27] MEDS: busPIRone 5 MG TABLET PO SCH ×3 (09:19→17:21)
[2019-07-27] MEDS: DOCUSATE SODIUM 250 MG CAPSULE PO SCH ×2 (09:19→17:00)
[2019-07-27] MEDS: SERTRALINE HCL 50 MG TABLET PO SCH (09:19)
[2019-07-27] MEDS: ENOXAPARIN SODIUM 40 MG/0.4 ML DISP.SYRIN SQ SCH (09:20)
[2019-07-27 16:00] VITALS: BP 115/71
--- NOTE | 2019-07-27 19:05 | NUR ---
M/S RN NOTES PATIENT AWAKE LYING IN BED. PATIENT ALERT AND ORIENTED X3. PATIENT IN NO RESPIRATORY DISTRESS NOTED, NO C/O PAIN AT THIS TIME. PATIENT REFUSED SCD'S TO BE ON, EXPLAINED RISKS AND BENEFITS BUT PATIENT STILL REFUSING. SKIN WARM TO TOUCH. IV ACCESS SITE INTACT AND PATENT. PATIENT'S NEEDS ATTENDED. BED ON LOWEST LOCKED POSITION, CALL LIGHT WITHIN REACH. WILL ENDORSE TO ONCOMING NURSE.
--- NOTE | 2019-07-27 19:20 | NUR ---
M/S RN OPENING NOTE BEDSIDE REPORT RECIEVED FROM WINTER RN .PATIENT AWAKE LYING IN BED. PATIENT ALERT AND ORIENTED X3. REVIEWED POC WITH PATIENT VERBALIZED UNDERSTANDING. PT STILL AWAITING PLACEMENT IN REHAB/SNF. PATIENT IN NO RESPIRATORY DISTRESS NOTED, NO C/O PAIN AT THIS TIME. PATIENT REFUSING SCD'S REVIEWED RISKS AND BENEFITS WITH BUT REFUSING. IV ACCESS SITE INTACT AND PATENT TO RIGHT FOREARM NO S/S OF COMPLICATIONS. BED ON LOWEST LOCKED POSITION, CALL LIGHT WITHIN REACH. WILL CONT TO MONITOR.
[2019-07-27 20:22] VITALS: BP 115/70
[2019-07-27] MEDS: TRAZODONE 50 MG TABLET PO SCH (21:33)
[2019-07-27] MEDS: ZOLPIDEM TARTRATE 5 MG TABLET PO PRN (21:33)
[2019-07-27] MEDS: MAGNESIUM OXIDE 400 MG TABLET PO SCH (21:33)
--- NOTE | 2019-07-28 06:10 | NUR ---
UNBLANCHEABLE REDNESS SACRAL BONY PROMINENCE. PATIENT FOUND TO HAVE UNBLANCHEABLE REDNESS TO COCCYX/ SACRAL AREA OVER BONY PROMINENCE. PICTURE TAKEN. AREA MEASURES LESS THEN 1CM CIRCUMFERENCE. AREA COVERED WITH MEPILEX FOR PROTECTION. PATIENT ALSO HAS SMALL ABRASION TO RIGHT HIP ABOVE SURGICAL DRESSING PICTURE TAKEN. AREA COVERED WITH MEPILEX.
[2019-07-28 08:00] VITALS: BP 114/64
[2019-07-28] MEDS: ALBUTEROL FS 2.5 MG/0.5 ML VIAL.NEB NEB SCH (08:29)
[2019-07-28] MEDS: ENOXAPARIN SODIUM 40 MG/0.4 ML DISP.SYRIN SQ SCH (08:54)
[2019-07-28] MEDS: FOLIC ACID 1 MG TABLET PO SCH (08:55)
[2019-07-28] MEDS: SERTRALINE HCL 50 MG TABLET PO SCH (08:55)
[2019-07-28] MEDS: ENSURE ENLIVE CHOC 237 ML CAN PO SCH ×2 (08:56→12:18)
[2019-07-28] MEDS: busPIRone 5 MG TABLET PO SCH ×2 (08:56→12:17)
[2019-07-28] MEDS: DOCUSATE SODIUM 250 MG CAPSULE PO SCH (08:59)
[2019-07-28] MEDS: HYDROCODONE/APAP 5/325MG 1 EACH TABLET PO PRN (12:47)
--- NOTE | 2019-07-28 16:10 | NUR ---
BUNDLE TIER AND LABELER NOTES PT STABLE AT DISCHARGE. ALL DISCHARGE PAPERWORK, DISCUSSED, SIGNED, COPIED, AND GIVEN TO THE PATIENT. ID AND IV REMOVED. REPORT GIVEN TO ADRIÁN DODSON. PATIENT PICKED UP BY 2 REGULATORY COMPLIANCE ENGINEER AT 1610. PT LEFT UNIT VIA GURNEY. ALL BELONGINGS TAKEN WITH PATIENT.
== END 2019-07-28 16:10 | DRG 628 ==
LOC: ER 22:22 → MED 07-21 00:48
PROVIDERS: ADMIT Internal Medicine; ATTEND Nurse Practitioner Acute Care
PROC: 0SRR0JZ Replacement of Right Hip Joint, Femoral Surface with Synthetic Substitute, Open Approach (ICD-10-PCS; principal; 2019-07-22)
PROC: 30233R1 Transfusion of Nonautologous Platelets into Peripheral Vein, Percutaneous Approach (ICD-10-PCS; principal; 2019-07-22)
DX: E43 Unspecified severe protein-calorie malnutrition (principal); S72.011A Unspecified intracapsular fracture of right femur, initial encounter for closed fracture; D61.818 Other pancytopenia; D68.9 Coagulation defect, unspecified; R64 Cachexia; J44.9 Chronic obstructive pulmonary disease, unspecified; Y92.9 Unspecified place or not applicable; F41.9 Anxiety disorder, unspecified; F32.9 Major depressive disorder, single episode, unspecified; K70.30 Alcoholic cirrhosis of liver without ascites; D69.6 Thrombocytopenia, unspecified; D63.8 Anemia in other chronic diseases classified elsewhere; M19.90 Unspecified osteoarthritis, unspecified site; F10.21 Alcohol dependence, in remission; J45.909 Unspecified asthma, uncomplicated; W18.30XA Fall on same level, unspecified, initial encounter; S40.021A Contusion of right upper arm, initial encounter; S01.91XA Laceration without foreign body of unspecified part of head, initial encounter; D73.1 Hypersplenism; Z79.899 Other long term (current) drug therapy; Z96.651 Presence of right artificial knee joint; Z86.19 Personal history of other infectious and parasitic diseases
CPT/HCPCS: 36415; 36600; 71045-TC; 72170-TC; 73502; 73552; 76700-TC; 80048-TC; 80053-TC; 80061-TC; 81000-TC; 82728-TC; 82784; 82803-TC; 83540-TC; 83735-TC; 84100-TC; 84155; 84165; 84439-TC; 84443-TC; 84484-TC; 85025-TC; 85730-TC; 86334; 86850-TC; 87081-TC; 88305-TC; 88311-TC; 93307-TC; 94799-TC; 97110-TC; 97112-TC; 97116-TC; 97530-TC; A4217; C1776; G0378; J0330; J0690; J1170; J1650; J2250; J2270; J2370; J2405; J2704; J3475; J3490; J7040; J7060; P9016-BL; P9034-BL